=== PATIENT | male | born 1970 | race Caucasian/White ===

== ENCOUNTER 2020-09-18 15:17 | Emergency (ER) | payer BC ==
[~2020-09-18] VITALS: Ht 175.3 cm; Wt 87.7 kg
[2020-09-18 15:30] VITALS: BP 129/87
[2020-09-18] MEDS ORDERED: CEPH500T PO (16:07)
--- NOTE | 2020-09-18 16:07 | PHYS DOC ---
Past History Past Medical History: No Pertinent History Past Surgical History: Appendectomy, Tonsillectomy Alcohol Use: None Social History Narrative: last used this am General Adult EDM: Chief Complaint: LOWER EXTREMITY SWELLING HPI: HPI: 49-year-old male presents with left knee pain and rash on his lower leg. Patient states that his knee pain started a couple days ago. For work he does a lot of kneeling and standing up. He does not remember any specific trauma or fall. He is also had a red speckling rash on the lower part of the calf. He thinks it is a bit warmer to the touch than the other leg. A friend of his told him it could be cellulitis so he decided he should come and get evaluated. Patient admits to having "bad knees" but does not have a specific history. He says that he is never had a swollen knee in the past. The patient does admit to doing heroin. He last use this morning. Denies fever or chills. Review of Systems: Review of Systems: Constitutional: Denies fever or chills Eyes: Denies change in visual acuity HENT: Denies nasal congestion or sore throat Respiratory: Denies cough or shortness of breath Cardiovascular: Denies chest pain or edema GI: Denies abdominal pain, nausea, vomiting, bloody stools or diarrhea : Denies dysuria Musculoskeletal: Left knee pain Integument: Rash left leg Neurologic: Denies headache, focal weakness or sensory changes Endocrine: Denies polyuria or polydipsia Lymphatic: Denies swollen glands Psychiatric: Denies depression or anxiety Allergies: Allergies: Allergies Coded Allergies Type Severity Reaction Last Updated Verified No Known Drug Allergies 09/18/20 No Physical Exam: PE: Constitutional: Well developed, well nourished, no acute distress, non-toxic appearance. [] HENT: Normocephalic, atraumatic, bilateral external ears normal, oropharynx moist, no oral exudates, nose normal. [] Eyes: PERRLA, EOMI, conjunctiva normal, no discharge. [] Neck: Normal range of motion, no tenderness, supple, no stridor. [] Cardiovascular:Heart rate regular rhythm, no murmur [] Lungs & Thorax: Bilateral breath sounds clear to auscultation [] Abdomen: Bowel sounds normal, soft, no tenderness, no masses, no pulsatile masses. [] Skin: Warm, erythematous rash of the left lower calf. [] Back: No tenderness, no CVA tenderness. [] Extremities: Left knee with edema, no erythema, no warmth. [] Neurologic: Alert and oriented X 3, normal motor function, normal sensory function, no focal deficits noted. [] Psychologic: Affect normal, judgement normal, mood normal. [] Current Patient Data: Vital Signs: Vital Signs Date Time Temp Pulse Resp B/P (MAP) Pulse Ox O2 Delivery O2 Flow Rate FiO2 09/18/20 15:30 97.8 88 18 129/87 (101) 96 Room Air EKG: EKG: [] Radiology/Procedures: Radiology/Procedures: [] Heart Score: C/O Chest Pain: N/A Risk Factors: Risk Factors: DM, Current or recent (<one month) smoker, HTN, HLP, family history of CAD, obesity. Risk Scores: Score 0 - 3: 2.5% MACE over next 6 weeks - Discharge Home Score 4 - 6: 20.3% MACE over next 6 weeks - Admit for Clinical Observation Score 7 - 10: 72.7% MACE over next 6 weeks - Early Invasive Strategies Course & Med Decision Making: Course & Med Decision Making Pertinent Labs and Imaging studies reviewed. (See chart for details) The rash of the patient's lower leg appears consistent with cellulitis. I will treat him with Keflex for 7 days. His knee appears to be reactive edema. It does not appear infected at this time. I recommended ice, rest, and compression therapy. I have informed him that if he develops any kind of systemic fever above 100.4 or if his knee becomes erythematous and warm that he would need to be reevaluated and likely get IV antibiotics. He states verbal understanding. He is stable for discharge at this time. [] Dragon Disclaimer: Dragon Disclaimer: This electronic medical record was generated, in whole or in part, using a voice recognition dictation system. Departure Departure: Impression: Primary Impression: Cellulitis of left lower extremity without foot Disposition: HOME / SELF CARE / HOMELESS Condition: STABLE Referrals: ALBERTA BUSH MD (PCP) Patient Instructions: Cellulitis, [id number] Scripts Cephalexin (CEPHALEXIN) 500 Mg Tablet 1 TAB PO TID for cellulitis for 7 Days, #21 TAB Prov: MELO LARSEN DO 09/18/20 MELO LARSEN DO September 18, 2020 16:07
[2020-09-18] MEDS ORDERED: CEPHALEXIN 250 MG CAPSULE PO ONE (16:15)
== END 2020-09-18 16:25 | disposition home or self-care (01) ==
LOC: ER 15:17
DX: L03.116 Cellulitis of left lower limb (principal)
CPT/HCPCS: 99283